=== PATIENT | male | born 1960 | race Caucasian/White ===

== ENCOUNTER 2021-02-04 13:55 | Emergency (ER) | payer OTHER, SELFPAY ==
[2021-02-04 14:17] VITALS: BP 143/74; PULSE 109; RESP 18; TEMP 36.6; O2SAT 97; BMI 37.0
[2021-02-04] MEDS: Lidocaine HCl 2 % MPF 5 ML VIAL SUBCUT (14:35)
--- NOTE | 2021-02-04 14:49 | ED.WOUNDLAC ---
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 Reports that he is up-to-date on tetanus. Denies any bony tenderness. Denies any thoughts of foreign bodies. Denies any other symptoms complaints or concerns at this time. Onset (ago): minute(s) (Prior to arrival) Extremity Location: right: hand Place: home Patient tetanus UTD: Yes Context: accidental Associated symptoms: pain Treatments prior to arrival: bandage Related Data Previous Rx's Medication Instructions Recorded cephalexin 500 mg capsule 1,000 mg PO Q6H 7 Days #56 cap 02/04/21 tramadol 50 mg tablet 50 mg PO Q8H PRN #14 tab 02/04/21 Allergies Allergy/AdvReac Type Severity Reaction Status Date / Time bupropion [From WELLBUTRIN] Allergy Severe BRADYCARDIA, Unverified 11/02/19 14:42 REDNESS AND SWELLING codeine [CODEINE] Allergy Unknown CHEST PAIN Unverified 11/02/19 14:42 Review of Systems Review of Systems: Constitutional : No Fever, No Chills, Cardiovascular : No Chest Pain, No SOB Respiratory : No Dyspnea Gastrointestinal : No abdominal pain Musculoskeletal : No Joint Swelling Skin : positive skin laceration, No Foreign bodies, No rash, No surrounding erythema Neuro : No Weakness, No Numbness/tingling Psych : No SI/HI/thoughts of self injury Yes all other systems are reviewed and are negative [facility] Past Medical History Attestation statement: The following information was validated with the patient. Medical History COPD (chronic obstructive pulmonary disease) Diverticulitis Physical Exam Vital Signs: Vital Signs: Last Vital Signs Temp 97.9 F 02/04/21 14:17 Pulse 109 H 02/04/21 14:17 Resp 18 02/04/21 14:17 BP 143/74 H 02/04/21 14:17 Pulse Ox 97 02/04/21 14:17 BMI result Body Mass Index 37.0 vital signs have been reviewed as normal and appeared to be correct. Blood pressure normal Heart rate normal. Respiration rate normal. Temperature normal. Oxygen saturation normal. Appearance: Alert. Oriented X3. No acute distress. Head: Normal external exam. Normocephalic. Atraumatic. Eyes: PERRLA. EOMI. Conjunctiva and sclera normal. Eyelids normal. ENT: Pharynx normal. Uvula midline. Moist mucous membranes. Neck: Normal inspection. Neck supple. FROM. CVS: Normal heart rate and rhythm. Respiratory: No respiratory distress. Painless inspiration. Skin: Skin warm and dry. Normal skin color. Normal skin turgor. No rashes/lesions noted. Extremities: Patient with intermediate 2 cm laceration to the MCP joint of the right thumb. No surrounding erythema/foreign bodies. Patient has full range of motion of all fingers and thumb joint. No obvious ligamentous or tendon injury. No signs of infection. Otherwise all other Extremities exhibit normal range of motion and nontender. Neuro: Oriented X 3. No motor deficit. No sensory deficit. Reflexes normal. Normal steady gait. No focal neuro deficits noted. Vascular: + radial pulses Normal cap refill. No cyanosis noted to upper extremity nails Course Course Course Narrative: Patient now status post laceration repair with 5 stitches placed. Patient tolerated procedure well. No complications. Tetanus updated. I did offer the patient x-ray although he reports that he does not believe it is indicated. Will DC home with symptomatic treatment antibiotics along with instructions to return in 10-14 days for suture removal and to follow up prior if signs of infection. Patient understands agrees the plan. MDM - Wound/Laceration Medical Records Attestation: I reviewed the patient's medical records. Procedures Laceration Laceration 1: Site: hand Side (If applicable): right Size (cm): 2 Description: linear Depth: simple, single layer Local Anesthetic: lidocaine 2% Amount of anesthesia used (mL): 5 Pre-repair: wound explored, irrigated extensively and deep structures intact Skin layer closed with: nylon Size (cm): 4-0 Number of sutures: 5 Technique: simple, interrupted Discharge Plan Discharge Clinical Impression: Hand laceration Patient Disposition: Home, Self-Care Instructions: Laceration (ED) Prescriptions: New cephalexin 500 mg capsule 1,000 mg PO Q6H 7 Days Qty: 56 RF: 0 tramadol 50 mg tablet 50 mg PO Q8H PRN (Reason: pain) Qty: 14 RF: 0 Referrals: Fara Gutiérrez PA [Emergency Midlevel Provider] - 10 days (For suture removal) Print Language: Citizen [place]
== END 2021-02-04 15:17 | disposition home or self-care (01) ==
LOC: HO.ED 15:03
PROVIDERS: Emergency Provider Emergency Medicine
DX: S61.411A Laceration without foreign body of right hand, initial encounter (principal); W26.0XXA Contact with knife, initial encounter; Y93.9 Activity, unspecified; Y92.009 Unspecified place in unspecified non-institutional (private) residence as the place of occurrence of the external cause; Y99.9 Unspecified external cause status
CPT/HCPCS: 12001; 99283; 99284

== ENCOUNTER 2022-12-11 14:34 | Emergency (ER) | payer OTHER, SELFPAY ==
--- NOTE | ~2022-12-11 | CT_ITS ---
EXAMINATION: CT HEAD WITHOUT CONTRAST CLINICAL INFORMATION: Headache. COMPARISON: None available. TECHNIQUE: Contiguous axial imaging was performed from the skull base to vertex without intravenous administration of contrast. This CT examination was performed using dose optimization techniques as appropriate, variously including the following: *Automated exposure control *Adjustment of mA and/or kV according to patient size (this includes techniques or standardized protocols for targeted exams where dose is matched to indication/reason for exam; i.e. extremities or head) *Use of iterative reconstruction technique DLP: 739 mGy-cm FINDINGS: The lateral third and fourth ventricles are normally outlined. The cortical sulci and basal cisterns are normally outlined as well. There is mild bilateral periventricular and central white matter diminished attenuation. There is no acute territorial defect, hemorrhage or midline shift. The extra-axial spaces are unremarkable. Calvarium: Intact. Maxillofacial sinuses and mastoids: There is mucosal thickening and opacities throughout the visualized maxillofacial sinuses. The mastoids are clear. CT/CT head/brain wo IV con IMPRESSION: No acute intracranial pathology. Mucosal thickening and opacities throughout the visualized maxillofacial sinuses. Correlation for significance is needed.
[2022-12-11 14:36] VITALS: BP 164/83; PULSE 112; RESP 20; TEMP 36.3; O2SAT 94; BMI 39.8
--- NOTE | 2022-12-11 14:39 | ED_ITS ---
HPI - General Adult General Chief complaint: Head Injury Stated complaint: Laceration on head, injury today Time Seen by Provider: 12/11/22 15:16 Source: patient Mode of arrival: ambulatory Limitations: no limitations History of Present Illness HPI narrative: 62-year-old male with a history of COPD, high cholesterol presents to the ER with complaints of laceration to the head. Patient reports that he was working on a car when a 2 x 4 fell hitting him in the top of the head. He denies loss of consciousness. Reports mild headache. No nausea, vomiting, vision changes, dizziness, neck pain. Patient is on aspirin only. No additional AC therapy Tetanus up-to-date Related Data Previous Rx's Medication Instructions Recorded cephalexin 500 mg capsule 1,000 mg (2 x 500 mg) PO Q6H 7 02/04/21 days #56 caps tramadol 50 mg tablet 50 mg PO Q8H PRN pain #14 tabs 02/04/21 Allergies Allergy/AdvReac Type Severity Reaction Status Date / Time bupropion [From WELLBUTRIN] Allergy Severe BRADYCARDIA, Verified 12/11/22 14:36 REDNESS AND SWELLING codeine [CODEINE] Allergy Unknown CHEST PAIN Verified 12/11/22 14:36 Review of Systems 2 Review of Systems: Yes all other systems are reviewed and are negative Constitutional: Constitutional: Reports no additional constitutional complaints, Denies body ache(s), Denies chills, Denies fever(s), Denies headache(s) and Denies weakness Eyes: Eyes: Reports no additional eye complaints and Denies change in vision ENT: Reports system reviewed and no additional complaints, except as documented, Denies dizziness, Denies headache(s), Denies nasal congestion, Denies nasal discharge and Denies neck pain Cardiovascular: Cardiovascular: Reports no additional cardiovascular complaints, Denies chest pain, Denies leg edema and Denies dyspnea Respiratory: Respiratory: Reports no additional respiratory complaints, Denies cough and Denies dyspnea Gastrointestinal: Gastrointestinal: Reports no additional gastrointestinal complaints, Denies abdominal pain, Denies diarrhea, Denies nausea and Denies vomiting Genitourinary: Genitourinary: Denies urinary incontinence Musculoskeletal: Musculoskeletal: Reports no additional musculoskeletal complaints, Denies back pain, Denies arthralgias, Denies joint swelling, Denies neck pain, Denies numbness and Denies tingling Integumentary/Breasts: Skin/Breast: Reports system reviewed and no additional complaints, except as docu, Denies rash and Reports wounds Neurologic: Reports system reviewed and no additional complaints, except as documented, Denies Abnormal speech present, Denies dizziness, Denies headache(s), Denies numbness, Denies tingling and Denies weakness PMFSH Past Medical History Attestation statement: The following information was validated with the patient. Source: old records reviewed and nursing notes reviewed Medical History Diverticulitis COPD (chronic obstructive pulmonary disease) Social History Social History Advance Directives: No Advance Directives Information Provided: No Physical Exam ED Vital Signs: Vital Signs - 24 hr 12/11/22 14:36 Temperature 97.3 F Pulse Rate 112 H Respiratory Rate 20 Blood Pressure 164/83 H Pulse Oximetry 94 Oxygen Delivery Method Room Air BMI result Body Mass Index 39.8 Const General: cooperative, healthy appearing, comfortable and no acute distress Orientation/consciousness: patient oriented x3 Limitations: no limitations HENMT Head: Yes normal to inspection, No Saez's sign and No raccoon eyes Ears: hearing grossly normal bilaterally and TM's normal bilaterally General nose exam: Normal external nose present Face and sinus: Yes normal facial exam Face images: 2 1. laceration present- no active bleeding, edges approximated Mouth: Normal oral and palatal mucosa present Throat: Yes posterior oropharynx normal Eyes General: appearance normal, both eyes and all related structures Pupils: Equal, round and reactive pupils present Neck Other: no cervical midline tenderness, step-offs deformities Neck: Yes normal visual inspection, Yes full ROM, Yes no lymphadenopathy and Yes no meningeal signs Chest Chest palpation & inspection: normal inspection of the chest Resp Effort & Inspection: normal respiratory effort Auscultation: clear to auscultation bilaterally Cardio Rate: regular rate Rhythm: regular rhythm Peripheral pulses: Peripheral pulses 2+ throughout GI Inspection: Yes normal to inspection Palpation (GI): Soft to palpation and nontender Auscultation: normal bowel sounds Back/Spine/Pelvis Thoracic/Lumbar Spine: thoracic and lumbar spine normal to inspection Skin General skin exam: no rashes or lesions noted Neuro General: patient oriented x3, moves all extremities, no meningeal signs, no focal motor deficits and normal sensation to monofilament Cranial nerves: Yes CN's II-XII intact bilaterally, Yes Equal, round and reactive pupils present, Yes Bilaterally intact EOM present, Yes Nystagmus not present, Yes Normal facial strength present and Yes Midline tongue present Cognition (Neuro): normal cognition Speech: No Abnormal speech present Gait exam (Neuro): Normal gait present Motor exam (neuro): 5/5 motor strength present throughout Sensory Exam: Normal double simultaneous stimulation for sensation Extrem General: Yes normal to inspection Course Course Course Narrative: RME- 62 year old male presents for evaluation of a head injury. He was at work when a ?2 x 4 fell and hit me in the head. ? Patient has a long, thin laceration to the top of the scalp. No loss of consciousness. He takes baby aspirin but no anticoagulation. Plan for CT scan Reevaluation(s) Reevaluation #1: CT shows no acute finding. Patient was instructed of his results. Recommend head injury care at home. Reviewed worrisome signs and symptoms of when to return to the emergency room. Comfortable plan for discharge home. Procedures Laceration Laceration 1: Site: scalp Side (If applicable): right Size (cm): 5 Description: linear Depth: simple, single layer Pre-repair: wound explored and irrigated extensively Skin layer closed with: other (steri strips ) Medical Decision Making Medical Decision Making MDM Narrative: 62-year-old male with a history of COPD, high cholesterol presents to the ER with complaints of laceration to the head. Patient reports that he was working on a car when a 2 x 4 fell hitting him in the top of the head. He denies loss of consciousness. Reports mild headache. No nausea, vomiting, vision changes, dizziness, neck pain. Patient is on aspirin only. No additional AC therapy Tetanus UTD normal neuro exam no focal deficit due to age patient will have CT head see wound repair for laceration Differential Diagnosis Differential Diagnoses: The differential diagnosis associated with the presentation includes laceration low concern for intracranial hemorrhage, skull fracture, cervical fracture Admission/Observation Consideration of admission/observation: Escalation of care including admission/observation considered normal neuro exam with no focal fluids, no need for admission for obs Independent Interpretation I performed an independent interpretation of an: CT Scan Interpretation: I independently reviewed the CT scan agree with Radiology report Radiology Impression Discussion of test interpretation with radiology: I have reviewed the radiologist's reading. Radiologist Impression: [address] [address] [address] Scan Report Signed Patient: Alfredo Juárez MR#: [id number] : 1960 Acct:[id number] Age/Sex: 62 / M ADM Date: 12/11/22 Loc: HO.ED Attending Dr: Ordering Physician: Luis Alfredo Moe Date of Service: 12/11/22 Procedure(s): CT head/brain wo IV con Accession Number(s): [id number] cc: Luis Alfredo Moe ; Physician,Unknown ~ EXAMINATION: CT HEAD WITHOUT CONTRAST CLINICAL INFORMATION: Headache. COMPARISON: None available. TECHNIQUE: Contiguous axial imaging was performed from the skull base to vertex without intravenous administration of contrast. This CT examination was performed using dose optimization techniques as appropriate, variously including the following: *Automated exposure control *Adjustment of mA and/or kV according to patient size (this includes techniques or standardized protocols for targeted exams where dose is matched to indication/reason for exam; i.e. extremities or head) *Use of iterative reconstruction technique DLP: 739 mGy-cm FINDINGS: The lateral third and fourth ventricles are normally outlined. The cortical sulci and basal cisterns are normally outlined as well. There is mild bilateral periventricular and central white matter diminished attenuation. There is no acute territorial defect, hemorrhage or midline shift. The extra-axial spaces are unremarkable. Calvarium: Intact. Maxillofacial sinuses and mastoids: There is mucosal thickening and opacities throughout the visualized maxillofacial sinuses. The mastoids are clear. CT/CT head/brain wo IV con IMPRESSION: No acute intracranial pathology. Mucosal thickening and opacities throughout the visualized maxillofacial sinuses. Correlation for significance is needed. Discharge Plan Discharge Clinical Impression: Laceration of head Patient Disposition: Home, Self-Care Instructions: Steristrips (ED), Head Laceration (ED) Additional Instructions: avoid getting the Steri-Strips wet for at least 5 days. If they fall of before then no need to return. Take tylenol for motrin for pain as neeeded return for severe headache, vomiting or behavior change Prescriptions: No Action cephalexin 500 mg capsule 1,000 mg PO Q6H 7 Days Qty: 56 0RF tramadol 50 mg tablet 50 mg PO Q8H PRN (Reason: pain) Qty: 14 0RF Rx Instructions: May partially fill upon patient request Referrals: Physician,Unknown J [Primary Care Provider] - 1 week
[2022-12-11 16:40] VITALS: BP 148/83; PULSE 90; RESP 16; O2SAT 96
== END 2022-12-11 16:43 | disposition home or self-care (01) ==
PROVIDERS: Emergency Provider Emergency Medicine; PCP Internal Medicine
DX: S01.01XA Laceration without foreign body of scalp, initial encounter (principal); W20.8XXA Other cause of strike by thrown, projected or falling object, initial encounter; Y93.9 Activity, unspecified; Y92.9 Unspecified place or not applicable; Y99.9 Unspecified external cause status
CPT/HCPCS: 70450; 99284

== ENCOUNTER 2023-06-28 14:18 | Emergency (ER) | payer OTHER, SELFPAY ==
--- NOTE | ~2023-06-28 | XR_ITS ---
EXAMINATION: XR HAND, LEFT CLINICAL INFORMATION: Trauma to fifth digit. COMPARISON: None available. TECHNIQUE: PA, lateral, and oblique views of the left hand. XR/XR hand LT min 3V FINDINGS / IMPRESSION: There is a 1.3 mm curvilinear density best seen on the lateral projection adjacent to the tuft of the distal phalanx of the fifth digit. Although this may represent a small avulsion fracture, a definite donor site is not identified. Alternatively, this may represent a retained foreign object within the soft tissue. Remaining osseous structures are intact.
[2023-06-28 14:53] VITALS: BP 169/96; PULSE 85; RESP 18; TEMP 36.6; O2SAT 97; BMI 39.4
--- NOTE | 2023-06-28 14:53 | ECG_ITS ---
Test Reason : dizziness Blood Pressure : / mmHG Vent. Rate : 085 BPM Atrial Rate : 085 BPM P-R Int : 140 ms QRS Dur : 112 ms QT Int : 372 ms P-R-T Axes : 035 -41 008 degrees QTc Int : 442 ms Normal sinus rhythm with sinus arrhythmia Left axis deviation Minimal voltage criteria for LVH, may be normal variant ( Song product ) Abnormal ECG When compared with ECG of 20-FEB-2019 10:13, No significant change was found Referred By: Varsha Brown Electronically Signed By:SLIME SAMANO MD
--- NOTE | 2023-06-28 14:54 | ED_ITS ---
HPI - Extremity Injury (Upper) General Chief Complaint: General Medical Stated Complaint: Finger inj Time Seen by Provider: 06/28/23 16:24 Source: patient Mode of arrival: ambulatory Limitations: no limitations History of Present Illness HPI narrative: Patient comes here with crushing injury to the left 5th finger by the garage door when he tried to stop. Patient was planning to work on the garage door fell lightheaded tried to brace himself at by mistake put his hand in the track of the garage door. Had similar lightheaded feeling yesterday for last few days off and on gets better after sitting down or lying down no palpitation no chest pain no complete loss of conscious no diaphoresis patient has been followed by health education coordinator last workup 3 months ago was clear no change in dizziness with neck movement happens only on standing Related Data Previous Rx's ?Medication ?Instructions ?Recorded cephalexin 500 mg capsule 1,000 mg (2 x 500 mg) PO Q6H 7 02/04/21 days #56 caps tramadol 50 mg tablet 50 mg PO Q8H PRN pain #14 tabs 02/04/21 cephalexin 500 mg capsule 500 mg PO QID 7 days #28 caps 06/28/23 oxycodone 5 mg tablet 5 mg PO Q6H PRN pain #20 tabs 06/28/23 Allergies Allergy/AdvReac Type Severity Reaction Status Date / Time bupropion [From WELLBUTRIN] Allergy Severe BRADYCARDIA, Verified 06/28/23 14:55 REDNESS AND SWELLING codeine [CODEINE] Allergy Unknown CHEST PAIN Verified 06/28/23 14:55 Review of Systems 2 Review of Systems: Yes all other systems are reviewed and are negative [facility] Past Medical History Medical History Diverticulitis COPD (chronic obstructive pulmonary disease) Social History Social History Smoked in Last 30 Days: No Use of substances other than those prescribed or required for medical reasons: No Advance Directives: No Advance Directives Information Provided: No Physical Exam 2 Vital Signs: Vital Signs: Last Vital Signs Temp 98.3 F 06/28/23 17:44 Pulse 95 06/28/23 17:44 Resp 18 06/28/23 17:44 BP 194/85 H 06/28/23 17:44 Pulse Ox 96 06/28/23 17:44 O2 Del Method Room Air 06/28/23 17:44 BMI result Body Mass Index 39.4 Appearance: Alert. Oriented X3. No acute distress. Eyes: PERRLA, No Nystagmus ENT: Pharynx normal. Oral Mucosa moist Neck: Normal inspection. Neck supple. CVS: Normal heart rate and rhythm. Pulses normal. Respiratory: No respiratory distress. Equal air entry bilateral, no wheezing/rales/rhonchi Abdomen: Soft and nontender. Bowel sounds are present, no mass palpable, no CVA tenderness Skin: Skin warm and dry. Normal skin color. Normal skin turgor. Extremities: No lower extremity edema. No calf tenderness left hand 5th digit with distal laceration of l tip of the finger nail was hanging neurovascular intact Neuro: Oriented X 3. No motor deficit. No sensory deficit.No cerebellar signs , cranial nerves II-XII intact Course Course Course Narrative: This is a Rapid Medical Examination (RME) performed by Chandana Brown PA-C in triage. Full HPI, ROS, assessment and treatment plan per primary provider in the Main ED. 63-year-old [id number] male with a history of HLD, HTN who presents to the ER for evaluation of left pinky finger injury. He states his left pinky finger got stuck in the garage door track and ran it over injuring the distal finger and nail bed. He states he was dizzy prior to this incident. He reports dizziness when going from sitting to standing. He just has health education coordinator at [facility] and ?everything was fine. ? Denies any chest pain, admits to chronic shortness of breath due to severe COPD. He has a former smoker. on exam left 5th digit w/ laceration involving the nailbed, +oozing. Plan: X-ray of the finger, tetanus shot is up-to-date, EKG and labs, orthostatics due to dizziness. Medications Administered Discontinued Medications Generic Name Dose Route Start Last Admin Trade Name Freq PRN Reason Stop Dose Admin Cephalexin HCl 500 mg 06/28/23 17:25 06/28/23 17:35 Cephalexin 500 Mg Capsule PO 06/28/23 17:26 500 mg ONCE ONE Administration Lidocaine HCl 2 ml 06/28/23 16:43 06/28/23 16:50 Lidocaine Hcl 1 % Mpf 2 Ml Vial INFILTRATI 06/28/23 16:44 2 ml ONCE ONE Administration Oxycodone HCl 10 mg 06/28/23 15:53 06/28/23 15:59 Oxycodone Hcl Immed Release 5 Mg Tablet PO 06/28/23 15:54 10 mg ONCE ONE Administration Medical Decision Making Medical Decision Making [facility] Narrative: Patient with left 5th finger laceration involving the nail which was sutured along with a laceration tip of the finger neurovascular intact orthostatics are normal likely vasovagal attack Lab Data [facility] Lab Attestation statement: I reviewed the patient's lab results. 06/28/23 15:13 06/28/23 15:13 Labs: Lab Results 06/28/23 Range/Units 15:13 WBC 9.7 (4.8-10.8) X10*3/uL RBC 4.56 L (4.60-5.80) X10*6/uL Hgb 14.9 (14.0-18.0) g/dl Hct 42.5 (42.0-52.0) % MCV 93.2 (80.0-98.0) fL MCH 32.7 (27.0-33.0) pg MCHC 35.1 (31.0-36.0) g/dl RDW 11.2 (11.0-16.0) % Plt Count 257 (160-400) X10*3/uL MPV 9.5 (9.4-12.4) fL Immature Gran % (Auto) 0.2 (0.0-0.4) % Neut % (Auto) 47.3 (45-73) % Lymph % (Auto) 31.9 (20-40) % Kings % (Auto) 13.4 H (2-11) % Eos % (Auto) 6.3 H (0-4) % Baso % (Auto) 0.9 (0-2) % Lymph # (Auto) 3.1 (1.2-4.9) X10*3/uL Kings # (Auto) 1.3 H (0.1-1.2) X10*3/uL Eos # (Auto) 0.6 H (0.0-0.4) X10*3/uL Baso # (Auto) 0.1 (0.0-0.2) X10*3/uL Abs Immat Gran (auto) 0.02 (0.00-0.03) X10*3/uL Absolute Neuts (auto) 4.6 (2.0-8.3) x10*3/uL Absolute Nucleated RBC 0.000 (0.0-0.012) X10*3/uL Nucleated RBC % (auto) 0.0 (0.0-0.2) /100WBC Sodium 139 (135-145) mmol/L Potassium 4.1 (3.3-5.1) mmol/L Chloride 105 (96-108) mmol/L Carbon Dioxide 24 (22-29) mmol/L Anion Gap 14 (12-20) BUN 14 (9-16) mg/dL Creatinine 0.85 (0.5-1.4) mg/dL Estim Creat Clear Calc 91.3 Estimated GFR > 60 Random Glucose 91 (60-115) mg/dL Calcium 9.7 (8.4-10.2) mg/dL Magnesium 2.2 (1.6-2.6) mg/dL Troponin I High Sens 3.4 (<3.5-35.0) ng/L Independent Interpretation I performed an independent interpretation of an: EKG and Plain X-Ray Interpretation: Normal sinus rhythm heart rate 85 beats per minute left axis deviation LVH no acute STT wave changes no acute ischemia Radiology Impression Discussion of test interpretation with radiology: I have reviewed the radiologist's reading. Procedures Laceration Laceration 1: Site: hand Side (If applicable): left Size (cm): 1 Description: other (Left 5th finger tip) Depth: [id number] (Laceration of the distal 1/3 of the nail) Local Anesthetic: lidocaine 1% Amount of anesthesia used (mL): 2 Skin layer closed with: nylon Size (cm): 6-0 Number of sutures: 6 Technique: simple, interrupted and other (Nail was sutured along with the side of the tip of the finger) Discharge Plan Discharge Clinical Impression: Laceration of finger nail bed Patient Disposition: Home, Self-Care Instructions: Finger Laceration (ED) Additional Instructions: Local care as advised Suture removal in 7-10 days Take antibiotic to avoid infection Pain medicine as prescribed Prescriptions: New cephalexin 500 mg capsule 500 mg PO QID 7 Days Qty: 28 0RF oxycodone 5 mg tablet 5 mg PO Q6H PRN (Reason: pain) Qty: 20 0RF Rx Instructions: Partial Fill upon patient request. No Action cephalexin 500 mg capsule 1,000 mg PO Q6H 7 Days Qty: 56 0RF tramadol 50 mg tablet 50 mg PO Q8H PRN (Reason: pain) Qty: 14 0RF Rx Instructions: May partially fill upon patient request Interventions: ED Discharge Assessment Last Done: 06/28/23 17:44 Discharge Date/Time: 06/28/23 17:44 Print Language: [place]
[2023-06-28 15:17] LABS: MANUAL DIFF FLAG NO
[2023-06-28 15:18] LABS: Basophils Absolute Auto 0.1 X10*3/uL (0.0-0.2); Basophils Percent Auto 0.9 % (0-2); Eosinophils Absolute Auto 0.6 X10*3/uL (0.0-0.4); Eosinophils Percent Auto 6.3 % (0-4); Hematocrit 42.5 % (42.0-52.0); Hemoglobin 14.9 g/dl (14.0-18.0); Imm Gran Abs Auto 0.02 X10*3/uL (0.00-0.03); Imm Gran Pct Auto 0.2 % (0.0-0.4); Lymphocytes Absolute Auto 3.1 X10*3/uL (1.2-4.9); Lymphocytes Percent Auto 31.9 % (20-40); Mean Corpuscular HGB Conc 35.1 g/dl (31.0-36.0); Mean Corpuscular Hemoglobin 32.7 pg (27.0-33.0); Mean Corpuscular Volume 93.2 fL (80.0-98.0); Mean Platelet Volume 9.5 fL (9.4-12.4); Monocytes Absolute Auto 1.3 X10*3/uL (0.1-1.2); Monocytes Percent Auto 13.4 % (2-11); Neutrophils Absolute Auto 4.6 x10*3/uL (2.0-8.3); Neutrophils Percent Auto 47.3 % (45-73); Platelet Count 257 X10*3/uL (160-400); Red Blood Count 4.56 X10*6/uL (4.60-5.80); Red Cell Distribution Width 11.2 % (11.0-16.0); White Blood Count 9.7 X10*3/uL (4.8-10.8)
[2023-06-28 15:34] LABS: Anion Gap 14 (12-20); Blood Urea Nitrogen 14 mg/dL (9-16); Calcium 9.7 mg/dL (8.4-10.2); Carbon Dioxide 24 mmol/L (22-29); Chloride 105 mmol/L (96-108); Creatinine Clr Calc Pharmacy 91.3; Estimated Glomerular Filt Rate > 60; Glucose Random 91 mg/dL (60-115); Magnesium 2.2 mg/dL (1.6-2.6); Potassium 4.1 mmol/L (3.3-5.1); Sodium 139 mmol/L (135-145)
[2023-06-28 15:38] VITALS: BP 185/95; PULSE 84; RESP 18; O2SAT 93
[2023-06-28 15:40] VITALS: BP 160/78; PULSE 92
[2023-06-28 15:41] LABS: Troponin-I High Sensitivity 3.4 ng/L (<3.5-35.0)
[2023-06-28 15:42] VITALS: BP 203/110; PULSE 95
[2023-06-28 15:43] VITALS: BP 194/85; PULSE 95
[2023-06-28] MEDS: oxyCODONE HCl Immed Release 5 MG TABLET 10 MG PO (15:59)
[2023-06-28] MEDS: Lidocaine HCl 1 % MPF 2 ML VIAL INFILTRATI (16:50)
[2023-06-28] MEDS: cephALEXin 500 MG CAPSULE PO (17:35)
[2023-06-28 17:44] VITALS: BP 194/85; PULSE 95; RESP 18; TEMP 36.8; O2SAT 96
== END 2023-06-28 17:44 | disposition home or self-care (01) ==
PROVIDERS: Physician Assistant; Emergency Provider Internal Medicine; PCP Internal Medicine
DX: S61.317A Laceration without foreign body of left little finger with damage to nail, initial encounter (principal); I49.8 Other specified cardiac arrhythmias; R42 Dizziness and giddiness; M79.642 Pain in left hand; W26.9XXA Contact with unspecified sharp object(s), initial encounter; Y93.9 Activity, unspecified; Y92.9 Unspecified place or not applicable; Y99.8 Other external cause status; Z79.899 Other long term (current) drug therapy
CPT/HCPCS: 12001; 36415; 73130; 80048; 83735; 84484; 85025; 93005; 99284

== ENCOUNTER → 2023-06-28 14:53 | Outpatient (BNV) | payer OTHER, SELFPAY | PROVIDERS: Emergency Provider Internal Medicine; PCP Internal Medicine; Visit Provider Internal Medicine Cardiovascular Disease | DX: I49.8 Other specified cardiac arrhythmias (principal); I44.4 Left anterior fascicular block | CPT/HCPCS: 93010 ==